=== PATIENT | female | born 1950 | race Caucasian/White ===

== ENCOUNTER 2023-05-06 14:58 | Inpatient (IN) | payer BC, MEDICARE ==
[2023-05-06] MEDS ORDERED: Ondansetron 4 MG/2 ML SDV IVPUSH ONE (15:36)
[2023-05-06] MEDS ORDERED: Sodium Chloride 0.9% 1,000 ML IV ONE (15:36)
[2023-05-06 15:56] LABS: BASOPHILS PERCENT AUTO 0.7 % (0.2-1.2); HEMATOCRIT 32.2 % (33.0-47.0); HEMOGLOBIN 11.4 g/dL (12.0-16.0); IMMATURE GRAN ABSOLUTE AUTO 0.01 x10^3/uL (0.00-0.07); LYMPHOCYTES ABSOLUTE AUTO 0.7 x10^3/uL (1.0-4.8); LYMPHOCYTES PERCENT AUTO 23.3 % (25.0-50.0); MEAN CORPUSCULAR HEMOGLOBIN 29.5 pg (26.0-32.0); MEAN CORPUSCULAR HGB CONC 35.4 g/dL (32.0-36.0); MEAN CORPUSCULAR VOLUME 83.2 fL (78.0-93.0); MONOCYTES ABSOLUTE AUTO 0.4 x10^3/uL (0.0-0.8); MONOCYTES PERCENT AUTO 13.4 % (2.0-11.0); NEUTROPHILS ABSOLUTE AUTO 1.8 x10^3/uL (1.8-7.7); NEUTROPHILS PERCENT AUTO 62.3 % (50.0-80.0); PLATELET COUNT,PLT 193 x10^3/uL (130-400); RED BLOOD CELL COUNT 3.87 x10^6/uL (4.00-5.50)
[2023-05-06 16:10] LABS: WHITE BLOOD CELL COUNT,WBC 2.9 x10^3/uL (4.0-10.0)
[2023-05-06 16:19] LABS: ALANINE AMINOTRANSFERASE,ALT 50 U/L (14-59); ALBUMIN 3.3 g/dL (3.4-5.0); ALKALINE PHOSPHATASE 88 U/L (46-116); ASPARTATE AMNIOTRANSFERASE,AST 50 U/L (15-37); BILIRUBIN TOTAL 0.6 mg/dL (0.2-1.0); BLOOD UREA NITROGEN,BUN 14 mg/dL (7-18); C-REACTIVE PROTEIN 2.29 mg/dL (<=0.50); CARBON DIOXIDE,CO2 29 mmol/L (21-32); CHLORIDE,CL 83 mmol/L (98-107); GLUCOSE RANDOM 100 mg/dL (70-99); LIPASE 62 U/L (19-71); POTASSIUM,K 3.3 mmol/L (3.5-5.1); PROTEIN TOTAL,TP 7.4 g/dL (6.4-8.2)
[2023-05-06 16:22] LABS: ANION GAP 13.3 mmol/L (5-15); ESTIMATED GFR 59 mL/min (>=60)
[2023-05-06 16:23] LABS: SODIUM,NA 122 mmol/L (136-145)
[2023-05-06 17:09] LABS: CORONAVIRUS COVID-19 NAA NEGATIVE (NEGATIVE); INFLUENZA B NAA NEGATIVE (NEGATIVE); RESPIRATORY SYNCYTIAL VIR NAA NEGATIVE (NEGATIVE)
[2023-05-06] MEDS ORDERED: Ondansetron 4 MG Tab.DIS PO PRN (19:15)
[2023-05-06] MEDS ORDERED: Ondansetron 4 MG/2 ML SDV IV PRN (19:15)
[2023-05-06] MEDS ORDERED: Sodium Chloride 0.9% 10 ML Syringe FLUSH PRN (19:15)
[2023-05-06] MEDS: atorvaSTATin 10 MG Tab PO SCH (20:39)
[2023-05-06] MEDS: Oseltamivir 75 MG Cap PO SCH (20:39)
[2023-05-06] MEDS: NS + KCl 20mEq/L 1,000 ML IV SCH (20:45)
[2023-05-07] MEDS: NS + KCl 20mEq/L 1,000 ML IV SCH (04:50)
[2023-05-07] MEDS: Acetaminophen 325 MG Tab PO PRN (04:59)
[2023-05-07] MEDS ORDERED: Levothyroxine 88 MCG Tab PO SCH (07:00)
[2023-05-07 07:09] LABS: BASOPHILS PERCENT AUTO 0.3 % (0.2-1.2); HEMATOCRIT 30.8 % (33.0-47.0); HEMOGLOBIN 10.7 g/dL (12.0-16.0); LYMPHOCYTES ABSOLUTE AUTO 1.2 x10^3/uL (1.0-4.8); LYMPHOCYTES PERCENT AUTO 35.6 % (25.0-50.0); MEAN CORPUSCULAR HEMOGLOBIN 29.4 pg (26.0-32.0); MEAN CORPUSCULAR HGB CONC 34.7 g/dL (32.0-36.0); MEAN CORPUSCULAR VOLUME 84.6 fL (78.0-93.0); MONOCYTES ABSOLUTE AUTO 0.5 x10^3/uL (0.0-0.8); MONOCYTES PERCENT AUTO 15.9 % (2.0-11.0); NEUTROPHILS ABSOLUTE AUTO 1.6 x10^3/uL (1.8-7.7); NEUTROPHILS PERCENT AUTO 48.2 % (50.0-80.0); PLATELET COUNT,PLT 186 x10^3/uL (130-400); RED BLOOD CELL COUNT 3.64 x10^6/uL (4.00-5.50); WHITE BLOOD CELL COUNT,WBC 3.3 x10^3/uL (4.0-10.0)
[2023-05-07 07:16] LABS: APPEARANCE,URINE CLEAR (CLEAR); BILIRUBIN,URINE NEGATIVE (NEGATIVE); COLOR,URINE YELLOW (YELLOW); GLUCOSE,URINE NEGATIVE (NEGATIVE); KETONES,URINE NEGATIVE (NEGATIVE); LEUKOCYTE ESTERASE,URINE NEGATIVE (NEGATIVE); NITRITE,URINE NEGATIVE (NEGATIVE); OCCULT BLOOD,URINE SMALL (NEGATIVE); PH,URINE 5.5 (5.0-8.0); PROTEIN,URINE NEGATIVE (NEGATIVE); UROBILINOGEN,URINE 0.2 EU/dL (0.2)
[2023-05-07 07:24] LABS: CALCIUM 7.8 mg/dL (8.5-10.1); EST CRCL DRUG DOSING (CG) 44.41 mL/min; MAGNESIUM 1.7 mg/dL (1.8-2.4); POTASSIUM,K 3.5 mmol/L (3.5-5.1)
[2023-05-07 07:27] LABS: ANION GAP 11.5 mmol/L (5-15)
[2023-05-07 07:28] LABS: BACTERIA,URINE NOT SEEN /HPF (NOT SEEN); MUCUS,URINE NOT SEEN /LPF (NOT SEEN); RBC,URINE 0-5 /HPF (NOT SEEN); SQUAMOUS EPITHELIAL CELLS,UR NOT SEEN /HPF (NOT SEEN); WBC,URINE NOT SEEN /HPF (NOT SEEN)
[2023-05-07] MEDS ORDERED: Hydrochlorothiazide 12.5 MG Cap PO SCH ×2 (07:30→09:00)
[2023-05-07] MEDS: Oseltamivir 75 MG Cap PO SCH (08:20)
[2023-05-07] MEDS ORDERED: Albuterol/Ipratropium 3.0-0.5 MG/3 ML Neb Soln NEB PRN (08:36)
[2023-05-07] MEDS ORDERED: Lisinopril 20 MG Tab PO SCH (09:00)
[2023-05-07] MEDS: Albuterol/Ipratropium 3.0-0.5 MG/3 ML Neb Soln NEB PRN ×2 (17:15→21:34)
[2023-05-07] MEDS: atorvaSTATin 10 MG Tab PO SCH (20:38)
[2023-05-07] MEDS: Oseltamivir 30 MG Cap PO SCH (20:39)
[2023-05-08] MEDS: Albuterol/Ipratropium 3.0-0.5 MG/3 ML Neb Soln NEB PRN (02:22)
[2023-05-08] MEDS: Acetaminophen 325 MG Tab PO PRN (02:32)
[2023-05-08 06:51] LABS: BASOPHILS PERCENT AUTO 0.6 % (0.2-1.2); EOSINOPHILS PERCENT AUTO 0.3 % (0.0-4.0); HEMATOCRIT 32.7 % (33.0-47.0); IMMATURE GRAN ABSOLUTE AUTO 0.01 x10^3/uL (0.00-0.07); LYMPHOCYTES ABSOLUTE AUTO 1.3 x10^3/uL (1.0-4.8); LYMPHOCYTES PERCENT AUTO 42.1 % (25.0-50.0); MEAN CORPUSCULAR HEMOGLOBIN 29.5 pg (26.0-32.0); MEAN CORPUSCULAR HGB CONC 33.6 g/dL (32.0-36.0); MEAN CORPUSCULAR VOLUME 87.7 fL (78.0-93.0); MONOCYTES ABSOLUTE AUTO 0.5 x10^3/uL (0.0-0.8); MONOCYTES PERCENT AUTO 15.8 % (2.0-11.0); NEUTROPHILS ABSOLUTE AUTO 1.3 x10^3/uL (1.8-7.7); NEUTROPHILS PERCENT AUTO 40.9 % (50.0-80.0); PLATELET COUNT,PLT 197 x10^3/uL (130-400); RED BLOOD CELL COUNT 3.73 x10^6/uL (4.00-5.50); WHITE BLOOD CELL COUNT,WBC 3.1 x10^3/uL (4.0-10.0)
[2023-05-08] MEDS ORDERED: Hydrochlorothiazide 12.5 MG Cap PO SCH (07:00)
[2023-05-08] MEDS ORDERED: Levothyroxine 88 MCG Tab PO SCH (07:00)
[2023-05-08] MEDS ORDERED: Lisinopril 20 MG Tab PO SCH (07:00)
[2023-05-08 07:12] LABS: A/G RATIO 0.81; ALBUMIN 2.9 g/dL (3.4-5.0); BILIRUBIN TOTAL 0.3 mg/dL (0.2-1.0); CALCIUM 7.9 mg/dL (8.5-10.1); CREATININE 1.1 mg/dL (0.55-1.02); EST CRCL DRUG DOSING (CG) 40.38 mL/min; POTASSIUM,K 3.3 mmol/L (3.5-5.1); PROTEIN TOTAL,TP 6.5 g/dL (6.4-8.2)
[2023-05-08 07:14] LABS: ANION GAP 13.3 mmol/L (5-15)
[2023-05-08] MEDS: Oseltamivir 30 MG Cap PO SCH (08:50)
[2023-05-09 15:17] LABS: INFLUENZA A NAA POSITIVE (NEGATIVE)
== END 2023-05-08 10:45 | disposition home or self-care (01) | DRG 641 ==
LOC: VM.ED 14:58 → VM.MS 17:24
PROVIDERS: ADMIT Physician Assistant Medical; ATTEND Family Medicine
DX: E87.1 Hypo-osmolality and hyponatremia (principal); J10.1 Influenza due to other identified influenza virus with other respiratory manifestations; I10 Essential (primary) hypertension; E87.6 Hypokalemia; E03.9 Hypothyroidism, unspecified; Z11.52 Encounter for screening for COVID-19; Z88.8 Allergy status to other drugs, medicaments and biological substances; Z88.1 Allergy status to other antibiotic agents; Z79.82 Long term (current) use of aspirin; Z79.890 Hormone replacement therapy; Z79.899 Other long term (current) drug therapy; Z20.822 Contact with and (suspected) exposure to COVID-19
CPT/HCPCS: 0241U; 36415; 80048; 80053; 81001; 83690; 83735; 85025; 86140; 94640; 96361; 96374; 99223; 99233; 99238; 99284-25; A9270-GY; J2405; J3480; J7030; J7620-GY

== ENCOUNTER 2024-02-23 20:50 | Emergency (ER) | payer MEDICARE ==
[2024-02-23] MEDS ORDERED: Morphine 4 MG/ML Syringe IVPUSH ONE (21:02)
[2024-02-23] MEDS ORDERED: Ondansetron 4 MG/2 ML SDV IVPUSH ONE (21:03)
[2024-02-23 21:27] LABS: BASOPHILS PERCENT AUTO 0.3 % (0.2-1.2); EOSINOPHILS ABSOLUTE AUTO 0.4 x10^3/uL (0.0-0.5); EOSINOPHILS PERCENT AUTO 3.7 % (0.0-4.0); HEMATOCRIT 36.9 % (33.0-47.0); HEMOGLOBIN 12.8 g/dL (12.0-16.0); IMMATURE GRAN ABSOLUTE AUTO 0.01 x10^3/uL (0.00-0.07); LYMPHOCYTES PERCENT AUTO 29.1 % (25.0-50.0); MEAN CORPUSCULAR HEMOGLOBIN 30.4 pg (26.0-32.0); MEAN CORPUSCULAR HGB CONC 34.7 g/dL (32.0-36.0); MEAN CORPUSCULAR VOLUME 87.6 fL (78.0-93.0); MONOCYTES ABSOLUTE AUTO 0.8 x10^3/uL (0.0-0.8); MONOCYTES PERCENT AUTO 7.9 % (2.0-11.0); NEUTROPHILS PERCENT AUTO 58.9 % (50.0-80.0); PLATELET COUNT,PLT 268 x10^3/uL (130-400); RED BLOOD CELL COUNT 4.21 x10^6/uL (4.00-5.50); WHITE BLOOD CELL COUNT,WBC 10.1 x10^3/uL (4.0-10.0)
[2024-02-23 21:41] LABS: A/G RATIO 0.88; ALANINE AMINOTRANSFERASE,ALT 18 U/L (14-59); ALBUMIN 3.6 g/dL (3.4-5.0); ALKALINE PHOSPHATASE 100 U/L (46-116); ASPARTATE AMNIOTRANSFERASE,AST 30 U/L (15-37); BILIRUBIN TOTAL 0.4 mg/dL (0.2-1.0); BLOOD UREA NITROGEN,BUN 28 mg/dL (7-18); CALCIUM 8.7 mg/dL (8.5-10.1); CARBON DIOXIDE,CO2 32 mmol/L (21-32); CHLORIDE,CL 102 mmol/L (98-107); CREATININE 1.2 mg/dL (0.55-1.02); GLUCOSE RANDOM 142 mg/dL (70-99); POTASSIUM,K 3.9 mmol/L (3.5-5.1); PROTEIN TOTAL,TP 7.7 g/dL (6.4-8.2); SODIUM,NA 141 mmol/L (136-145)
[2024-02-23 21:45] LABS: ANION GAP 10.9 mmol/L (5-15); ESTIMATED GFR 47 mL/min (>=60)
[2024-02-23 21:49] LABS: LIPASE 717 U/L (19-71)
[2024-02-23 22:23] LABS: APPEARANCE,URINE CLEAR (CLEAR); BILIRUBIN,URINE NEGATIVE (NEGATIVE); COLOR,URINE YELLOW (YELLOW); GLUCOSE,URINE NEGATIVE (NEGATIVE); KETONES,URINE NEGATIVE (NEGATIVE); LEUKOCYTE ESTERASE,URINE NEGATIVE (NEGATIVE); NITRITE,URINE NEGATIVE (NEGATIVE); OCCULT BLOOD,URINE TRACE-INTACT (NEGATIVE); PH,URINE 5.5 (5.0-8.0); PROTEIN,URINE NEGATIVE (NEGATIVE); UROBILINOGEN,URINE 0.2 EU/dL (0.2)
[2024-02-23 22:25] LABS: BACTERIA,URINE NOT SEEN /HPF (NOT SEEN); MUCUS,URINE NOT SEEN /LPF (NOT SEEN); RBC,URINE 0-5 /HPF (NOT SEEN); SQUAMOUS EPITHELIAL CELLS,UR OCCASIONAL /HPF (NOT SEEN); WBC,URINE 0-5 /HPF (NOT SEEN)
[2024-02-23] MEDS: Iopamidol 612 MG/ML 100 ML Bottle IVPUSH ONE (22:25)
[2024-02-23] MEDS: Take Home: Acetaminophen/HYDROcodone 325-5 MG, 5 Tab Pack PO ONE (23:30)
== END 2024-02-23 23:34 | disposition home or self-care (01) ==
LOC: VM.ED 20:50 → SUPCPDRO 20:50 → VM.ED 23:34
DX: K85.90 Acute pancreatitis without necrosis or infection, unspecified (principal); I10 Essential (primary) hypertension; E03.9 Hypothyroidism, unspecified; Z90.710 Acquired absence of both cervix and uterus; Z79.82 Long term (current) use of aspirin; Z79.899 Other long term (current) drug therapy; Z88.6 Allergy status to analgesic agent; Z88.9 Allergy status to unspecified drugs, medicaments and biological substances; Z88.8 Allergy status to other drugs, medicaments and biological substances
CPT/HCPCS: 74177; 80053; 81001; 83690; 85025; 99284; A9270-GY; Q9967